=== PATIENT | male | born 2000 | race African-American/Black ===

== ENCOUNTER 2021-12-03 16:44 | Emergency (ER) | payer SELFPAY ==
[2021-12-03 17:09] VITALS: BP 98/86; PULSE 81; RESP 16; TEMP 36.2; O2SAT 100
--- NOTE | 2021-12-03 17:53 | ED.GENADULT ---
HPI - General Adult General Chief complaint: Urogenital-Male Stated complaint: std Source: patient Mode of arrival: ambulatory Limitations: no limitations History of Present Illness HPI narrative: Patient presents requesting STD testing. She denies any testicular pain, urethral discharge, scrotal swelling, urinary symptoms. He is sexually active with 2 female partners, sometimes using condoms. He does not believe either are symptomatic. No history of STI to his knowledge. He has some chronic intermittent abdominal and bilateral inguinal pain that typically occurs when he is physically active. He denies symptoms at present time. No additional complaints or concerns. Related Data Home Medications Medication Instructions Recorded Confirmed albuterol mcg INHALATION 12/03/21 albuterol sulfate 12/03/21 fluticasone propion-salmeterol 1 inh INHALATION Q12H 12/03/21 12/03/21 [Advair Diskus] Allergies Allergy/AdvReac Type Severity Reaction Status Date / Time No Known Allergies Allergy Verified 12/03/21 17:06 Review of Systems Review of Systems: CONSTITUTIONAL: Denies fever, chills, or sweats. EYES: Denies visual changes, redness, or discharge. ENT: Denies rhinorrhea, congestion, sore throat, or otalgia. CARDIOVASCULAR: Denies chest pain, palpitations, or edema. RESPIRATORY: Denies cough or dyspnea. GASTROINTESTINAL: Reports chronic intermittent abdominal pain, with current symptoms. Denies nausea, vomiting, or diarrhea. GENITOURINARY: Denies dysuria or hematuria. SKIN: Denies rash or itching. MUSCULOSKELETAL: Reports chronic intermittent bilateral inguinal pain, none currently. Denies back pain, joint pain, or myalgia. NEUROLOGIC: Denies headache, numbness, dizziness, or weakness. PSYCHIATRIC: Denies anxiety or depression. [facility] Past Medical History Medical History Asthma Surgical History Surgical History History of appendectomy Family History Family History Mother Cancer Asthma Social History Social History Smoking status: Former smoker Alcohol intake: current Substance use: current Substance use type: marijuana Living arrangements: with roommate(s) Gender identity (if verbalized by the patient): Male Sexual Orientation (if Verbalized by the Patient): Straight or Heterosexual Spiritual care concerns: No Exam Narrative: GENERAL: Well-appearing, well-nourished, and in no acute distress. HEAD: Normocephalic, atraumatic. EYES: PERRLA and EOMI. ENT: Nares clear, no rhinorrhea or epistaxis. Mucous membranes moist. Oropharynx without tonsillar hypertrophy exudate or other lesions. Bilateral TMs pearly joshi nonbulging NECK: Supple. No adenopathy or masses. No carotid bruits or JVD CHEST: Clear to auscultation. No respiratory distress. No wheezes rales or rhonchi HEART: Regular rate and rhythm. No murmur heard. Normal peripheral pulses. ABDOMEN: Soft, nontender, nondistended, normal active bowel sounds. EXTREMITIES: Normal range of motion. No edema. GENITAL: No external genital lesions. No inguinal lymphadenopathy. No scrotal swelling. No testicular masses or tenderness. No urethral discharge. SKIN: Warm, dry, no rash. NEURO: No focal deficits. Alert and oriented x3. PSYCH: Normal mood and affect. Course Course Emergency Course: This is a 21-year-old male who presented requesting STI testing. He is asymptomatic. Gonorrhea, chlamydia, trichomonas testing were obtained. Advised to have comprehensive STI testing performed. Advised he have sex partners evaluated and treated. Advised on safer sex practices. He should follow-up outpatient for further evaluation and treatment return for worsening symptoms. Patient agreement with plan of care. Ronda
== END 2021-12-03 17:55 | disposition home or self-care (01) ==
PROVIDERS: Emergency Provider Nurse Practitioner
DX: Z20.2 Contact with and (suspected) exposure to infections with a predominantly sexual mode of transmission (principal); Z87.891 Personal history of nicotine dependence; J45.909 Unspecified asthma, uncomplicated
CPT/HCPCS: 81003; 87491; 87591; 87661; 99213; G0463

== ENCOUNTER 2022-02-20 12:53 | Emergency (ER) | payer BC, SELFPAY ==
[2022-02-20] VITALS (18 sets, daily range): BP systolic 149; BP diastolic 93; PULSE 61–106; RESP 16–33; TEMP 36.5; O2SAT 90–100
--- NOTE | ~2022-02-20 | XR_ITS ---
XR chest 2V 02/20/2022 14:25 Indication: Asthma attack. Shortness of breath. Procedure: 2 view chest Comparison: No prior studies for comparison. Findings: The lungs are mildly hyperinflated, which can be associated with reactive airway disease. H eart size normal. Left lung clear. No significant effusion. No pneumothorax. Artifact caused in the r ight upper lung from overlying chest lead. No acute osseous abnormality. No focal pneumonia, edema or pneumothorax. Impression: 1: No acute cardiopulmonary disease. Reviewed, dictated and finalized at location A. Impression: 1: No acute cardiopulmonary disease.
[2022-02-20] MEDS: MAGNESIUM SULF 2 GM/WATER 50ML 2 GM/50 ML BAG IVPB (13:08)
[2022-02-20] MEDS: ALBUTEROL SULFATE NEB 2.5 MG/3 ML INH 10 MG INHALATION (13:13)
[2022-02-20 13:24] LABS: Basophils Absolute Auto 0.1 K/mm3 (0.0-0.1); Eosinophils Absolute Auto 1.1 K/mm3 (0-0.3); Eosinophils Percent Auto 9.9 % (0-4.4); Hematocrit 47.8 % (42.0-52.0); Hemoglobin 14.9 g/dL (14.0-18.0); Immature Granulocyte Absolute 0.04 K/mm3 (0.00-0.031); Immature Granulocyte Percent A 0.4 % (0-0.5); Lymphocytes Absolute Auto 2.87 K/mm3 (0.9-3.2); Lymphocytes Percent Auto 26.6 % (18.3-44.2); Mean Corpuscular HGB Conc 31.2 g/dl (32-36); Mean Corpuscular Hemoglobin 26.7 pg (26-34); Mean Corpuscular Volume 85.5 fl (80-100); Mean Platelet Volume 8.8 fl (7.4-10.4); Monocytes Absolute Auto 0.9 K/mm3 (0.1-0.6); Monocytes Percent Auto 8.1 % (2.6-8.5); Neutrophils Absolute Auto 5.8 K/mm3 (1.3-6.7); Platelet Count Result 295 k/mm3 (150-375); Red Blood Count 5.59 M/mm3 (4.6-6.20); Red Cell Distribution Width 14.4 % (11.5-14.5); White Blood Count 10.8 K/mm3 (4.5-10.0)
[2022-02-20 13:34] LABS: Alanine Aminotransferase 28 U/L (6-50); Albumin Level 4.5 g/dL (3.5-5.1); Alkaline Phosphatase 96 U/L (38-126); Anion Gap 3 mmol/L (8-16); Aspartate Amino Transferase 36 U/L (17-59); Bilirubin,Total 0.5 mg/dL (0.2-1.3); Blood Urea Nitrogen 11 mg/dL (9-20); Carbon Dioxide 33 mmol/L (22-30); Chloride 104 mmol/L (98-107); Estimated CRCL calculation 94 ml/min; Estimated Glomerular Filt Rate > 60; Glucose 101 mg/dL (65-110); Potassium 4.8 mmol/L (3.4-5.0); Sodium 140 mmol/L (137-145)
[2022-02-20 14:04] LABS: SARS-CoV-2 RNA PCR Negative
--- NOTE | 2022-02-20 14:16 | ED.ASTHMA ---
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 States he has had increasing wheezing and respiratory symptoms over the last several days. He went to an urgent care and given some medications but is not getting any better. Today states it was much worse to the point can hardly breathe. He does have inhaler as well as nebulizer at home. Last time he was admitted to the hospital for asthma was when he was about 13. He states normally he is able to keep his asthma under pretty good control. EMS gave him 2 nebulizer treatments in route also given Decadron prior to arrival as well. Is never been intubated. Denies cigarette smoking but does smoke marijuana. Related Data Home Medications Medication Instructions Recorded Confirmed albuterol 90 mcg/actuation aerosol 90 mcg inhalation PRN PRN Wheezing 12/03/21 12/03/21 inhaler albuterol sulfate 0.63 mg/3 mL 0.63 mg inhalation PRN PRN Wheezing 12/03/21 12/03/21 solution for nebulization fluticasone 250 mcg-salmeterol 50 1 inh inhalation Q12H 12/03/21 12/03/21 mcg/dose blistr powdr for inhalation (Advair Diskus) Allergies Allergy/AdvReac Type Severity Reaction Status Date / Time No Known Allergies Allergy Verified 12/03/21 17:06 Review of Systems Review of Systems: CONSTITUTIONAL: Denies fever, chills, or sweats. EYES: Denies visual changes, redness, or discharge. ENT: Denies rhinorrhea, congestion, sore throat, or otalgia. CARDIOVASCULAR: Denies chest pain, palpitations, or edema. RESPIRATORY: Has not had a recent cough. Was having difficulty breathing with diffuse wheezing GASTROINTESTINAL: Denies abdominal pain, nausea, vomiting, or diarrhea. GENITOURINARY: Denies dysuria or hematuria. SKIN: Denies rash or itching. MUSCULOSKELETAL: Denies back pain, joint pain, or myalgia. NEUROLOGIC: Denies headache, numbness, or weakness. PSYCHIATRIC: Denies anxiety or depression. [facility] Past Medical History Medical History Asthma Surgical History Surgical History History of appendectomy Family History Family History Mother Cancer Asthma Social History Social History Smoking status: Former smoker Alcohol intake: current Substance use: current Substance use type: marijuana Gender identity (if verbalized by the patient): Male Sexual Orientation (if Verbalized by the Patient): Straight or Heterosexual Spiritual care concerns: No Exam Narrative: APPEARANCE: Mild to moderate distress secondary to difficulty breathing Head Normocephalic and atraumatic. EYES: PERRLA/EOMI, conjunctivae clear. NOSE: Normal with no drainage EARS:TMS clear with Ced[place], with good light reflex. THROAT: Pharynx clear, no exudate. NECK: Supple. No adenopathy, no masses. RESPIRATORY: Decreased aeration to all lung beckwith with end expiratory wheezing noted. CARDIOVASCULAR: Regular rate and rhythm without murmurs, rubs, or gallops. Tachycardic ABDOMINAL: Soft, nontender, nondistended, no hepatosplenomegaly Musculoskeletal: Moves all extremities. Strength/ROM intact, No edema, No calf tenderness. NEURO: Alert. Cranial nerves II through XII intact. Normal gait. Good coordination. Nonfocal examination. SKIN:: Warm, dry. Normal Color PSYCHIATRIC: Normal affect/mood, normal interaction Course Vital Signs Vital signs: Vital Signs Temperature 97.7 F 02/20/22 12:49 Pulse Rate 106 H 02/20/22 12:49 Respiratory Rate 33 H 02/20/22 12:49 Blood Pressure 149/93 H 02/20/22 12:49 Pulse Oximetry 99 02/20/22 12:49 Oxygen Delivery Room Air 02/20/22 12:49 Temperature 97.7 F 02/20/22 12:49
== END 2022-02-20 16:29 | disposition home or self-care (01) ==
PROVIDERS: Emergency Provider Emergency Medicine
DX: J45.909 Unspecified asthma, uncomplicated (principal); Z20.822 Contact with and (suspected) exposure to COVID-19
CPT/HCPCS: 36415; 71046; 80053; 85025; 94640; 96365; 99284; C9803; J3475; U0003; U0005

== ENCOUNTER 2022-12-21 13:38 | Emergency (ER) | payer BC, SELFPAY ==
--- NOTE | 2022-12-21 13:44 | ED.URI ---
HPI - URI/Sore Throat General Chief Complaint: Upper Respiratory Infection Stated Complaint: ASHTMA/WHEEZING Time Seen by Provider: 12/21/22 13:44 Source: patient Mode of arrival: ambulatory Limitations: no limitations History of Present Illness HPI Narrative: Patient is a 22-year-old male that presents with asthma along with STI exposure. Patient states his laser beam cutter is in [place] and is no longer covered by his insurance. He is now out of his inhalers and nebulizer. Patient trying to establish care locally. Denies any shortness of breath or wheezing at this time. Patient also states previous sexual partner contacted him stating she had Trichomonas, bacterial vaginosis and a yeast infection. Patient denies any testicular pain, discharge, sores. Reports last sexual contact was a month ago. Requesting treatment for Trichomonas. Related Data Home Medications Medication Instructions Recorded Confirmed albuterol 90 mcg/actuation aerosol 90 mcg inhalation PRN PRN Wheezing 12/03/21 12/21/22 inhaler fluticasone 250 mcg-salmeterol 50 1 inh inhalation Q12H 12/03/21 12/21/22 mcg/dose blistr powdr for inhalation (Advair Diskus) Allergies Allergy/AdvReac Type Severity Reaction Status Date / Time No Known Allergies Allergy Verified 12/21/22 13:50 Review of Systems Review of Systems: All systems reviewed & are unremarkable except as noted in HPI and below Constitutional: Constitutional: Denies body ache(s), Denies chills, Denies fatigue, Denies fever(s), Denies headache(s), Denies malaise and Denies weakness Eyes: Eyes: Denies blurry vision, Denies itchy eyes and Denies loss of vision ENT: Denies otalgia, Denies headache(s), Denies nasal congestion, Denies sinus pain and Denies sore throat Cardiovascular: Cardiovascular: Denies chest pain, Denies irregular heart rhythm and Denies dyspnea Respiratory: Respiratory: Denies cough and Denies dyspnea Gastrointestinal: Gastrointestinal: Denies abdominal pain, Denies diarrhea, Denies nausea and Denies vomiting Genitourinary: Genitourinary: Denies genital lesions, Denies genital pain, Denies dysuria, Denies penile discharge, Denies scrotal swelling, Denies testicular pain and Denies urinary frequency Musculoskeletal: Musculoskeletal: Denies back pain, Denies myalgias and Denies arthralgias Integumentary/Breasts: Skin/Breast: Denies pruritus and Denies rash Neurologic: Denies headache(s), Denies loss of vision and Denies weakness Psychiatric: Psychiatric: Reports no additional psychiatric complaints Endocrine: Endocrine: Denies fatigue Allergic/Immunologic: Allergic/Immunologic: Denies itchy eyes PMFSH Past Medical History Medical History Asthma Surgical History Surgical History History of appendectomy Family History Family History Mother Cancer Asthma Social History Social History Smoking status: Former smoker Alcohol intake: current Substance use: current Substance use type: marijuana Living arrangements: with roommate(s) Gender identity (if verbalized by the patient): Male Sexual Orientation (if Verbalized by the Patient): Straight or Heterosexual Spiritual care concerns: No Comments At time of signature, agree with nursing past medical, surgical, social and family history. There is no relevant family history pertinent to the presenting complaint. Exam Const: General: cooperative, healthy appearing, comfortable, no acute distress and well nourished Nutritional Appearance: well nourished Orientation/consciousness: patient oriented x3 Limitations: no limitations HENMT: Head: normal to inspection, normocephalic and atraumatic Ears: hearing grossly normal bilaterally, external ears normal, TM's normal bilaterally, EA
[2022-12-21 13:47] VITALS: BP 148/84; PULSE 102; RESP 20; TEMP 36.8; O2SAT 100
== END 2022-12-21 14:18 | disposition home or self-care (01) ==
PROVIDERS: Emergency Provider Nurse Practitioner Family
DX: J45.41 Moderate persistent asthma with (acute) exacerbation (principal); Z20.2 Contact with and (suspected) exposure to infections with a predominantly sexual mode of transmission; Z87.891 Personal history of nicotine dependence; F12.90 Cannabis use, unspecified, uncomplicated
CPT/HCPCS: 87491; 87591; 87661; 99213; G0463

== ENCOUNTER 2023-03-16 15:56 | Emergency (ER) | payer BC, SELFPAY ==
[2023-03-16 16:02] VITALS: BP 130/82; PULSE 80; RESP 20; TEMP 37.1; O2SAT 97
[2023-03-16 16:04] VITALS: BP 130/82; PULSE 80; RESP 20; TEMP 37.1; O2SAT 97
--- NOTE | 2023-03-16 16:06 | ED.GENADULT ---
HPI - General Adult General Chief complaint: Recheck/Abnormal Lab/Rx Stated complaint: refill Source: patient Mode of arrival: ambulatory Limitations: no limitations History of Present Illness HPI narrative: 23 y/o male presented requesting refill of albuterol inhaler and Advair diskus. States he has been out of both for about 1 week. Endorses mild wheezing. Denies cough or sob. States he has decreased his exercise due to being out of the meds. Also using nebulizer. Denies recent hospitalization for asthma. Was seen at this clinic 12/2022 for the same. Patient has not yet established with pcp. Related Data Home Medications Medication Instructions Recorded Confirmed fluticasone 250 mcg-salmeterol 50 1 inh inhalation Q12H 12/03/21 03/16/23 mcg/dose blistr powdr for inhalation (Advair Diskus) albuterol sulfate 2.5 mg/3 mL 2.5 mg inhalation DIRECTED 03/16/23 03/16/23 (0.083 %) solution for nebulization Allergies Allergy/AdvReac Type Severity Reaction Status Date / Time No Known Allergies Allergy Verified 03/16/23 16:01 Review of Systems Review of Systems: CONSTITUTIONAL: Denies body aches, fever, chills, or sweats. EYES: Denies visual changes, redness, or discharge. ENT: Denies rhinorrhea, congestion, sore throat, or otalgia. CARDIOVASCULAR: Denies chest pain, palpitations, or edema. RESPIRATORY: denies cough, sob, Reports wheezing. GASTROINTESTINAL: Denies abdominal pain, nausea, vomiting, or diarrhea. GENITOURINARY: Denies dysuria or hematuria. SKIN: Denies rash, itching, or wounds. MUSCULOSKELETAL: Denies back pain, joint pain, or myalgia. NEUROLOGIC: Denies headache, numbness, tingling, or weakness. All systems reviewed & are unremarkable except as noted in HPI and below PMFSH Past Medical History Medical History Asthma Surgical History Surgical History History of appendectomy Family History Family History Mother Cancer Asthma Social History Social History Smoking status: Former smoker Alcohol intake: current Substance use: current Substance use type: marijuana Living arrangements: with roommate(s) Gender identity (if verbalized by the patient): Male Sexual Orientation (if Verbalized by the Patient): Straight or Heterosexual Spiritual care concerns: No Comments At time of signature, I have reviewed and agree with nursing past medical, surgical, social and family history unless otherwise noted. Please see nursing chart for further information. There is no relevant family history pertinent to the presenting complaint Exam Narrative: GENERAL: Well-appearing, in no acute distress. EYES: EOMI. No redness or drainage. Conjunctivae normal. ENT: Mucous membranes pink and moist. No rhinorrhea. TMs normal bilaterally. Throat normal. Uvula midline. NECK: Normal AROM. Supple. CHEST: No respiratory distress. Left sided scattered faint wheezing HEART: Regular rate and rhythm. No murmur appreciated. ABDOMEN: Soft, nontender, nondistended, normal active bowel sounds. EXTREMITIES: Normal range of motion. No edema. SKIN: Warm, dry, no rash. Capillary refill normal. Normal skin turgor. NEURO: Alert and oriented x3. Gait steady. PSYCH: Normal affect. Course Course Emergency Course: Patient is aware of diagnosis, understands and agrees to treatment plan. Anticipatory guidance given. Patient agrees to follow-up as directed and is aware of reasons to seek care at the emergency department. Portions of this record may have been created with voice recognition software Level of Care: Express Care Visit Vital Signs Vital signs: Vital Signs Temperature 98.8 F 03/16/23 16:02 Pulse Rate 80 03/16/23 16:02 Respiratory Rate 20 0
== END 2023-03-16 16:27 | disposition home or self-care (01) ==
PROVIDERS: Emergency Provider Nurse Practitioner Family
DX: J45.909 Unspecified asthma, uncomplicated (principal); Z87.891 Personal history of nicotine dependence; F12.90 Cannabis use, unspecified, uncomplicated
CPT/HCPCS: 99211; G0463

== ENCOUNTER 2023-03-20 01:22 | Emergency (ER) | payer BC, SELFPAY ==
[2023-03-20 01:23] VITALS: BP 150/95; PULSE 77; RESP 20; TEMP 36.8; O2SAT 95
[2023-03-20 01:30] VITALS: O2SAT 95
--- NOTE | 2023-03-20 01:33 | ECG_ITS ---
Measurements Intervals [place] Rate: 77 P: 79 NV: 151 QRS: 105 QRSD: 123 T: 50 QT: 326 QTc: 371 Interpretive Statements SINUS RHYTHM WITH SINUS ARRHYTHMIA LEFT ATRIAL ENLARGEMENT [-0.15mV P WAVE IN V1/V2] MARKED RIGHT AXIS DEVIATION [QRS AXIS > 100] RIGHT BUNDLE BRANCH BLOCK [120+ ms QRS DURATION, UPRIGHT V1, 40+ ms S IN I/aVL/V4/V5/V6] ABNORMAL ECG NO PREVIOUS ECG AVAILABLE FOR COMPARISON Electronically Signed On 03-20-2023 9:25:34 CDT by Rohan Hernandez M.D.
[2023-03-20] MEDS: predniSONE 20 MG TABLET 40 MG PO (01:49)
[2023-03-20] MEDS: ALBUTEROL SULFATE NEB 2.5 MG/3 ML INH 15 MG INHALATION (01:53)
[2023-03-20] MEDS: IPRATROPIUM BR 0.02% INH SOLN 0.5 MG/2.5 ML VIAL 1 MG INHALATION (01:54)
[2023-03-20 01:55] VITALS: PULSE 81; RESP 20
[2023-03-20 03:01] VITALS: PULSE 90; RESP 20
[2023-03-20 03:53] VITALS: BP 146/75; PULSE 96; RESP 14; O2SAT 100
--- NOTE | 2023-03-20 05:12 | ED.ASTHMA ---
HPI - Asthma General Chief Complaint: Asthma Stated Complaint: asthma Time Seen by Provider: 03/20/23 01:36 History of Present Illness HPI Narrative: 23-year-old male with history of asthma presents here with an asthma flare over the last few days, he has prescriptions for medications however he has not been able to pick them up because it cost too much money as insurance has not approved them. He states that his mother is bringing him his medications and they will arrive in the morning but he just needs to make it until morning Related Data Home Medications Medication Instructions Recorded Confirmed fluticasone 250 mcg-salmeterol 50 1 inh inhalation Q12H 12/03/21 03/16/23 mcg/dose blistr powdr for inhalation (Advair Diskus) albuterol sulfate 2.5 mg/3 mL 2.5 mg inhalation DIRECTED 03/16/23 03/16/23 (0.083 %) solution for nebulization Allergies Allergy/AdvReac Type Severity Reaction Status Date / Time No Known Allergies Allergy Verified 03/16/23 16:01 Review of Systems Review of Systems: CONST: No fever. HEENT: No sore throat C/V: chest tightness RESP: Short of breath GI: No nausea vomit : No dysuria. M/S: No joint pain. SKIN: No rash. NEURO: [No headache or focal numbness or weakness] PSYCH: [No depression] [facility] Past Medical History Medical History Asthma Surgical History Surgical History History of appendectomy Family History Family History Mother Cancer Asthma Social History Social History Smoking status: Former smoker Alcohol intake: current Substance use: current Substance use type: marijuana Living arrangements: with roommate(s) Gender identity (if verbalized by the patient): Male Sexual Orientation (if Verbalized by the Patient): Straight or Heterosexual Spiritual care concerns: No Exam Narrative: EXAMINATION OF ORGAN SYSTEMS/BODY AREAS: Constitutional: Vital signs per nursing GENERAL:[No acute distress, non-toxic appearing.] HEAD: Normal with no signs of head trauma. EYES: EOMI, conjunctiva normal ENT: Hearing grossly intact LUNGS: Slight tachypnea, diffuse wheezing with diminished breath sound HEART: [Regular rate and rhythm] ABD: [Soft], [nontender to palpation] EXT: Normal range of motion SKIN: [No rashes or lesions.] NEURO: [Alert and oriented x 3. No gross focal sensory or strength deficits.] PSYCH: Normal affect Course Vital Signs Vital signs: Vital Signs Temperature 98.2 F 03/20/23 01:23 Pulse Rate 77 03/20/23 01:23 Respiratory Rate 20 03/20/23 01:23 Blood Pressure 150/95 H 03/20/23 01:23 Pulse Oximetry 95 03/20/23 01:23 Oxygen Delivery Room Air 03/20/23 01:23 Temperature 98.2 F 03/20/23 01:23 Pulse Rate 96 03/20/23 03:53 Respiratory Rate 14 03/20/23 03:53 Blood Pressure 146/75 H 03/20/23 03:53 Pulse Oximetry 100 03/20/23 03:53 Oxygen Delivery Room Air 03/20/23 01:30 MDM - Asthma MDM Narrative Medical decision making narrative: ED COURSE AND MEDICAL DECISION MAKIN-year-old with acute dyspnea and wheezing likely due to acute asthma exacerbation based on history and exam. Patient is hemodynamically stable. Nebulizer treatments are started and steroids given orally. PERC negative and doubt pneumonia without cough or fevers EKG - 12-Lead: Performed at 0139. Interpreted by me. [Sinus rhythm]. Rate 77. Right axis. GA-interval 151. QRS duration 123. QTc 371. [No ST segment elevation or depression]. [T-wave normal]. Impression: No EKG evidence of acute ischemia or dysrhythmia. Patient monitored in the ED for a couple of hours and on reevaluation is feeling significantly better. No respiratory distress or accessory muscle use. Good air movement bila
== END 2023-03-20 03:58 | disposition home or self-care (01) ==
PROVIDERS: Emergency Provider Emergency Medicine
DX: J45.901 Unspecified asthma with (acute) exacerbation (principal); R94.31 Abnormal electrocardiogram [ECG] [EKG]
CPT/HCPCS: 93005; 94640; 99283; J7512

== ENCOUNTER 2023-05-06 12:44 | Emergency (ER) | payer BC, SELFPAY ==
--- NOTE | 2023-05-06 12:46 | ECG_ITS ---
Measurements Intervals [place] Rate: 61 P: 83 MT: 163 QRS: 93 QRSD: 114 T: 53 QT: 425 QTc: 431 Interpretive Statements SINUS RHYTHM RIGHT AXIS DEVIATION INCOMPLETE RIGHT BUNDLE BRANCH BLOCK ST ELEVATION IN DIFFUSE LEADS CONSISTENT WITH INJURY, PERICARDITIS, OR EARLY REPOLARIZATION ABNORMAL ECG COMPARED TO ECG 03/20/2023 01:39:07 NO SIGNIFICANT CHANGES Electronically Signed On 05-06-2023 13:12:07 CDT by Steven Layton D.O.
[2023-05-06 12:54] VITALS: BP 110/66; PULSE 66; RESP 14; TEMP 36.6; O2SAT 97
[2023-05-06 13:11] LABS: Basophils Absolute Auto 0.1 K/mm3 (0.0-0.1); Basophils Percent Auto 0.9 % (0.2-1.2); Eosinophils Absolute Auto 0.3 K/mm3 (0-0.3); Eosinophils Percent Auto 4.9 % (0-4.4); Hematocrit 43.1 % (42.0-52.0); Hemoglobin 14.1 g/dL (14.0-18.0); Immature Granulocyte Absolute 0.01 K/mm3 (0.00-0.031); Immature Granulocyte Percent A 0.2 % (0-0.5); Lymphocytes Absolute Auto 2.18 K/mm3 (0.9-3.2); Lymphocytes Percent Auto 33.3 % (18.3-44.2); Mean Corpuscular HGB Conc 32.7 g/dl (32-36); Mean Corpuscular Volume 82.4 fl (80-100); Mean Platelet Volume 9.1 fl (7.4-10.4); Monocytes Absolute Auto 0.6 K/mm3 (0.1-0.6); Monocytes Percent Auto 8.4 % (2.6-8.5); Neutrophils Absolute Auto 3.4 K/mm3 (1.3-6.7); Neutrophils Percent Auto 52.3 % (45.5-73.1); Platelet Count Result 256 k/mm3 (150-375); Red Blood Count 5.23 M/mm3 (4.6-6.20); Red Cell Distribution Width 12.9 % (11.5-14.5); White Blood Count 6.6 K/mm3 (4.5-10.0)
--- NOTE | 2023-05-06 13:17 | PC.NURSE ---
patient came to desk and stated he was going to leave. ambulatory with steady gait. alert and oriented x4.
[2023-05-06 13:21] LABS: Alanine Aminotransferase 20 U/L (6-50); Albumin Level 4.2 g/dL (3.5-5.1); Alkaline Phosphatase 63 U/L (38-126); Anion Gap 6 mmol/L (8-16); Aspartate Amino Transferase 25 U/L (17-59); Bilirubin,Total 0.8 mg/dL (0.2-1.3); Blood Urea Nitrogen 8 mg/dL (9-20); Calcium 8.8 mg/dL (8.4-10.2); Carbon Dioxide 27 mmol/L (22-30); Chloride 103 mmol/L (98-107); Estimated CRCL calculation 89 ml/min; Estimated Glomerular Filt Rate > 60; Glucose 115 mg/dL (65-110); Potassium 3.8 mmol/L (3.4-5.0); Sodium 136 mmol/L (137-145)
== END 2023-05-06 13:37 | disposition left against medical advice (07) ==
PROVIDERS: Emergency Provider Emergency Medicine
DX: R55 Syncope and collapse (principal)
CPT/HCPCS: 36415; 80053; 85025; 93005; 99199

== ENCOUNTER 2023-05-08 18:37 | Emergency (ER) | payer BC, SELFPAY ==
[2023-05-08 18:53] VITALS: BP 123/82; PULSE 84; RESP 16; TEMP 37.1; O2SAT 100
--- NOTE | 2023-05-08 19:23 | ED.HEATRA ---
HPI - Head Injury General Chief complaint: Head Injury Stated complaint: PASSED OUT/HEAD INJURY Time Seen by Provider: 05/08/23 19:05 Source: patient, RN notes reviewed and old records reviewed (ER labs and EKG) Mode of arrival: ambulatory Limitations: no limitations History of Present Illness HPI Narrative: Patient presents today stating he had a syncopal episode 2 days ago at work where he lost consciousness for approximately 5 seconds after falling and hitting his head on the floor. He was transferred by ambulance to [facility] at that time where labs and an EKG were done. Patient did not want to wait for the rest of his workup, was not seen by a provider, and left without being seen. He did not receive results of any of his tests. He presents today complaining of a posterior headache that he rates 4/10 and, ?feeling disoriented at times. He states that prior to the fall he was feeling healthy, then, ?something just came over me. ? 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 He was not exerting himself. He has not tried any [id number] treatment for his symptoms. Related Data Home Medications Medication Instructions Recorded Confirmed fluticasone 250 mcg-salmeterol 50 1 inh inhalation Q12H 12/03/21 03/16/23 mcg/dose blistr powdr for inhalation (Advair Diskus) albuterol sulfate 2.5 mg/3 mL 2.5 mg inhalation DIRECTED 03/16/23 03/16/23 (0.083 %) solution for nebulization Allergies Allergy/AdvReac Type Severity Reaction Status Date / Time No Known Allergies Allergy Verified 03/16/23 16:01 Review of Systems Review of Systems: CONSTITUTIONAL: Denies body aches, fever, chills, or sweats. EYES: Denies visual changes, redness, or discharge. ENT: Denies rhinorrhea, congestion, sore throat, or otalgia. CARDIOVASCULAR: Denies chest pain, palpitations, or edema. RESPIRATORY: Denies cough or dyspnea. GASTROINTESTINAL: Denies abdominal pain, nausea, vomiting, or diarrhea. GENITOURINARY: Denies dysuria or hematuria. SKIN: Denies rash, itching, or wounds. MUSCULOSKELETAL: Denies back pain, joint pain, or myalgia. NEUROLOGIC: Denies numbness, tingling, or weakness.+ headache PSYCH: Denies depression or anxiety. PMFSH Past Medical History Medical History Asthma Surgical History Surgical History History of appendectomy Family History Family History Mother Cancer Asthma Social History Social History Smoking status: Former smoker Alcohol intake: current Substance use: current Substance use type: marijuana Living arrangements: with roommate(s) Gender identity (if verbalized by the patient): Male Sexual Orientation (if Verbalized by the Patient): Straight or Heterosexual Spiritual care concerns: No Comments At time of signature, I have reviewed and agree with nursing past medical, surgical, social and family history unless otherwise noted. Please see nursing chart for further information. There is no relevant family history pertinent to the presenting complaint Exam Narrative: GENERAL: Well-appearing, well-nourished, and in no acute distress. HEAD: Normocephalic, atraumatic. Bump to posterior head has resolved, but area remains slightly tender to upper occiput. EYES: EOMI. PERRL. No redness or drainage. Conjunctivae normal. ENT: Mucous membranes pink and moist. Nares clear. No rhinorrhea. TMs normal bilaterally. Throat normal. Uvula midline. NECK: Normal AROM. Supple. No lymphadenopathy. Nontender CHEST: No respiratory distress. Clear to auscultation. HEART: Regular rate and rhythm. No murmur appreciated. Normal peripheral pulses. EXTREMITIES: Normal range of motion. No fer
== END 2023-05-08 19:28 | disposition home or self-care (01) ==
PROVIDERS: Emergency Provider Nurse Practitioner
DX: S09.90XA Unspecified injury of head, initial encounter (principal); F07.81 Postconcussional syndrome; Z87.891 Personal history of nicotine dependence; W18.30XA Fall on same level, unspecified, initial encounter; Y99.0 Civilian activity done for income or pay
CPT/HCPCS: 99213; G0463

== ENCOUNTER 2023-05-25 12:00 | Emergency (ER) | payer BC, SELFPAY ==
[2023-05-25 12:05] VITALS: RESP 20
--- NOTE | 2023-05-25 12:05 | ED.GENADULT ---
HPI - General Adult General Chief complaint: Unspecified Stated complaint: refill Time Seen by Provider: 05/25/23 12:30 Source: patient, RN notes reviewed and old records reviewed Mode of arrival: ambulatory Limitations: no limitations History of Present Illness HPI narrative: Patient presents to the [facility] requesting refills on his asthma medication. Has no signs and symptoms. Has been evaluated for the same in March as well as December of this year. Still has not followed up with primary care provider as instructed. Last refill on Advair was February 15, 2023 Has been using mom's Advair Related Data Home Medications Medication Instructions Recorded Confirmed albuterol sulfate 2.5 mg/3 mL 2.5 mg inhalation DIRECTED 03/16/23 05/25/23 (0.083 %) solution for nebulization Allergies Allergy/AdvReac Type Severity Reaction Status Date / Time No Known Allergies Allergy Verified 03/16/23 16:01 Review of Systems Review of Systems: All systems reviewed & are unremarkable except as noted in HPI and below Constitutional: Constitutional: Reports no additional constitutional complaints Eyes: Eyes: Reports no additional eye complaints ENT: Reports system reviewed and no additional complaints, except as documented Cardiovascular: Cardiovascular: Reports no additional cardiovascular complaints, Denies chest pain and Denies dyspnea Respiratory: Respiratory: Reports no additional respiratory complaints, Denies chest congestion, Denies cough and Denies dyspnea Gastrointestinal: Gastrointestinal: Reports no additional gastrointestinal complaints, Denies abdominal pain, Denies nausea and Denies vomiting Musculoskeletal: Musculoskeletal: Reports no additional musculoskeletal complaints Integumentary/Breasts: Skin/Breast: Reports system reviewed and no additional complaints, except as docu Neurologic: Reports system reviewed and no additional complaints, except as documented Psychiatric: Psychiatric: Reports no additional psychiatric complaints Allergic/Immunologic: Allergic/Immunologic: Reports no additional allergic/immunologic complaints [facility] Past Medical History Medical History Asthma Surgical History Surgical History History of appendectomy Family History Family History Mother Cancer Asthma Social History Social History Smoking status: Former smoker Alcohol intake: current Substance use: current Substance use type: marijuana Living arrangements: with roommate(s) Gender identity (if verbalized by the patient): Male Sexual Orientation (if Verbalized by the Patient): Straight or Heterosexual Spiritual care concerns: No Comments At the time of my signature, I reviewed and agree with the nursing past medical, surgical, social, and family history. There is no relevant family history pertinent to the patient complaint. Exam Const: General: cooperative, healthy appearing, comfortable, no acute distress, well developed, alert and well nourished Nutritional Appearance: well nourished Orientation/consciousness: patient oriented x3 Limitations: no limitations HENMT: Head: normal to inspection Ears: hearing grossly normal bilaterally and external ears normal Face/Nose/Sinus: Normal external nose present, Normal nares present, Normal nasal mucous membranes and turbinates present, normal facial exam and face symmetric Face and sinus: normal facial exam and face symmetric Eyes: General: appearance normal, both eyes and all related structures Alignment and Position: alignment normal Periorbital: periorbital findings normal Pupils: Equal, round and reactive pupils present EOM: EOMs intact bilaterally Neck: Neck: normal visual inspection, full ROM, no lymphadenopathy and no
[2023-05-25 12:06] VITALS: BP 110/56; PULSE 61; RESP 16; TEMP 36.6; O2SAT 99
== END 2023-05-25 12:20 | disposition home or self-care (01) ==
PROVIDERS: Emergency Provider Nurse Practitioner
DX: J45.909 Unspecified asthma, uncomplicated (principal); Z87.891 Personal history of nicotine dependence; F12.90 Cannabis use, unspecified, uncomplicated
CPT/HCPCS: 99211; G0463